=== PATIENT | male | born 1970 | race African-American/Black ===

== ENCOUNTER 2021-11-07 01:09 | Emergency (ER) | payer OTHER ==
[2021-11-07] MEDS ORDERED: Morphine 4 MG/ML VIAL ONE (03:29)
== END 2021-11-07 03:56 | disposition home or self-care (01) ==
LOC: ERS 01:09
DX: S22.32XA Fracture of one rib, left side, initial encounter for closed fracture (principal); V86.99XA Unspecified occupant of other special all-terrain or other off-road motor vehicle injured in nontraffic accident, initial encounter
CPT/HCPCS: 71046; 96372; J2270